=== PATIENT | male | born 1975 | race Caucasian/White ===

== ENCOUNTER 2022-03-07 16:49 | Emergency (ER) | payer OTHER ==
[2022-03-07 17:19] VITALS: BP 134/78; PULSE 90; RESP 18; TEMP 99.3; BMI 32.7
[2022-03-07] MEDS ORDERED: IBUPROFEN 400 MG TABLET (FP) PO ONE ×2 (17:19→17:21)
== END 2022-03-07 19:00 | disposition home or self-care (01) ==
LOC: FER 16:49
DX: S62.634A Displaced fracture of distal phalanx of right ring finger, initial encounter for closed fracture (principal); W23.0XXA Caught, crushed, jammed, or pinched between moving objects, initial encounter
CPT/HCPCS: 73130-TC-RT-FY; 99283-25